=== PATIENT | male | born 1945 | race Caucasian/White ===

== ENCOUNTER → 2018-01-14 | Outpatient (CLI) | payer OTHER ==
[~2018-01-14] VITALS: Ht 170.2 cm; Wt 96.2 kg
[~2018-01-14] MED LIST: ALLOPURINOL 30300 M1 PO; COLACE 100 MG100 MG PO; COUMADIN 3 MG TA3 M1 PO; GABAPENTIN 100100 MG PO; MIDODRINE HCL2.5 M1 PO; NEPHRO-VITE RX1 TA1 PO; NOVOLOG100 UNIT/M SUBQ; PACERONE 200 M200 M1 PO; PEPCID20 MG PO; PREDNISONE 5 MG5 M1 PO; PROZAC20 M1 PO; ROCALTROL0.25 MCG PO; SYNTHROID200 MCG PO; VITAMINC500 PO; ZINC SULFATE 2220 MG PO
[2018-01-14 10:50] VITALS: BP 113/61
[2018-01-14 11:19] LABS: PROTIME 25.7 Seconds (9.3-11.4)
[2018-01-14 11:23] LABS: INR 2.5
== END | disposition home or self-care (01) ==
LOC: SPEC 10:37
PROVIDERS: Radiology Vascular & Interventional Radiology
DX: N18.6 End stage renal disease (principal); Z53.8 Procedure and treatment not carried out for other reasons